=== PATIENT | female | born 1955 | race Caucasian/White ===

== ENCOUNTER → 2024-01-30 12:35 | Outpatient (CLI) | payer OTHER, SELFPAY ==
--- NOTE | 2024-01-30 12:44 | DI.RAD.S_ITS ---
PROCEDURE: XR FOOT LT MIN 3V INDICATIONS: Pain in left foot TECHNIQUE: 3 views of the foot were acquired. COMPARISON: [facility], CR, XR FOOT 3+ VIEWS LEFT, 01/09/2024, 15:19. FINDINGS: Bones: Continued bone callus formation of the 2nd metatarsal shaft fracture. Plantar calcaneal enthesophyte. Soft tissues: No tibiotalar joint effusion. Achilles tendon appears normal. IMPRESSION: Continued bone callus formation of the 2nd metatarsal shaft fracture. Dictated by: Abdiel León M.D. on 01/30/2024 at 14:45 Approved by: Abdiel León M.D. on 01/30/2024 at 14:47
== END ==
PROVIDERS: PCP Internal Medicine; Referring Provider Podiatrist; Visit Provider Podiatrist
DX: S92.322D Displaced fracture of second metatarsal bone, left foot, subsequent encounter for fracture with routine healing (principal); M77.32 Calcaneal spur, left foot; M79.672 Pain in left foot
CPT/HCPCS: 73630